=== PATIENT | female | born 1990 | race Caucasian/White ===

== ENCOUNTER 2020-04-28 09:40 | Emergency (ER) | payer OTHER, SELFPAY ==
--- NOTE | ~2020-04-28 | US_ITS ---
EXAMINATION: US OB <= 14 weeks fetus EXAM DATE: 04/28/2020 12:13 INDICATION: , vaginal bleeding. 1st trimester. TECHNIQUE: Pelvic obstetrical transabdominal sonogram was performed by a technologist. There are mu ltiple grayscale and Doppler images available for interpretation. There are no earlier studies of th is gestation for comparison. FINDINGS: Uterus measures 8.9 x 3.4 x 5.0 cm. There is intrauterine gestation sac with flattened irr egular shape. A yolk sac is identified is identified, but no pole is specifically seen. Mean sa c diameter 8 mm. Given appearance, poor prognostic indicator for this , cannot confirm or ex clude totally viability. No subchorionic hemorrhage identified. The ovaries are morphologically marcy l. IMPRESSION: Abnormal shaped gestation sac with yolk sac but no pole identified, poor prognosti c indicators for this . Reviewed, dictated and finalized at location A. IMPRESSION: Abnormal shaped gestation sac with yolk sac but no pole iden tified, poor prognostic indicators for this .
[2020-04-28 09:44] VITALS: BP 136/83; PULSE 95; RESP 18; TEMP 36.8; O2SAT 100
--- NOTE | 2020-04-28 09:56 | ED.GENADULT ---
HPI - General Adult General Chief complaint: Vaginal Bleeding Stated complaint: 7 wks , cramping and bleeding Time Seen by Provider: 04/28/20 09:44 Source: RN notes reviewed History of Present Illness HPI narrative: Patient presents emergency department from home for vaginal bleeding. Patient states she is approximately 7 weeks and she is taken 3 home test that have been positive but is not seen HIM CLERK up to this point. She states she does follow with Dr. Jones. States that this morning she had cramping in the lower abdomen as well as some vaginal bleeding with wiping. She denies any fevers or chills chest pain shortness of breath nausea vomiting diarrhea or any other symptoms. Patient is G1, P0 Related Data Home Medications Medication Instructions Recorded Confirmed No Home Medications 04/28/20 04/28/20 Allergies Allergy/AdvReac Type Severity Reaction Status Date / Time No Known Allergies Allergy Verified 04/28/20 09:47 Review of Systems Review of Systems: Narrative: Gen.: Denies fevers or chills ENT: Denies congestion Respiratory: Denies shortness of breath or cough CV: Denies chest pain or palpitations GI: Reports lower abdominal cramping, denies nausea, emesis or diarrhea see HPI Musculoskeletal: Denies back pain or muscle pain Neuro: Denies numbness, tingling, weakness or focal weakness Skin: Denies rash Except as documented, all other systems reviewed and negative [facility] Past Medical History Medical History Left wrist pain Family History Family History (Updated 12/14/18 @ 07:10 by DOCTOR UNKNOWN) Mother Family history of lupus erythematosus Social History Social History Smoking status: Never smoker Alcohol intake: current Drinks per week: 2 Substance use: never Substance use type: does not use Gender identity (if verbalized by the patient): Female Exam Narrative: Exam Narrative: APPEARANCE: No acute distress, nontoxic, resting in bed EYES: EOMI HEENT: Normocephalic, atraumatic, OMM RESPIRATORY: No respiratory distress Clear to auscultation bilaterally with no rhonchi wheezing or rales. CARDIOVASCULAR: Regular rate and rhythm without murmurs rubs or gallops. ABDOMINAL: Soft, nontender, nondistended, no rebound or guarding : Normal external exam, small amount dark red blood clots in vaginal canal, cervix is closed MUSCULOSKELETAl: Moves all extremities. NEURO: Awake and alert. Following commands, speech normal, no focal deficits SKIN:: Warm, dry. No rashes lesions or abrasions PSYCHIATRIC: Normal affect/mood, Course Course Emergency Course: Discussed with Dr. Jones presentation work-up. This time agrees with plan was discharged with follow-up as an outpatient Discussed with patient results of workup and diagnosis. Discussed need for follow-up with primary care, proper use of medication, and reasons to return to the emergency department. Patient understands and agrees to current treatment plan discussed with patient ultrasound results and concern of threatened miscarriage Vital Signs Vital signs: Vital Signs Temperature 98.3 F 04/28/20 09:44 Pulse Rate 95 04/28/20 09:44 Respiratory Rate 18 04/28/20 09:44 Blood Pressure 136/83 04/28/20 09:44 Pulse Oximetry 100 04/28/20 09:44 Temperature 98.5 F 04/28/20 11:32 Pulse Rate 98 04/28/20 11:32 Respiratory Rate 18 04/28/20 11:32 Blood Pressure 107/72 04/28/20 11:32 Pulse Oximetry 100 04/28/20 11:32 Medical Decision Making Vital Signs Vital Signs: Vital Signs Temperature 98.3 F 04/28/20 09:44 Pulse Rate 95 04/28/20 09:44 Respiratory Rate 18 04/28/20 09:44 Blood Pressure 136/83 04/28/20 09:44 Pulse Oximetry 100 04/28/20 09:44 Temperature 98.5 F 04/28/20 11:32 Pulse Rate 98 04/28/20 11:32 Respiratory Rate 18 04/28/20 11
[2020-04-28] MEDS: SODIUM CHLORIDE 0.9% IV 1,000 ML 999 ML IV CONT (10:17)
[2020-04-28 10:18] LABS: Alanine Aminotransferase 41 U/L (4-35); Albumin Level 4.8 g/dL (3.5-5.1); Alkaline Phosphatase 65 U/L (38-126); Anion Gap 12 mmol/L (8-16); Aspartate Amino Transferase 34 U/L (14-36); Bilirubin,Total 0.6 mg/dL (0.2-1.3); Blood Urea Nitrogen 11 mg/dL (7-17); Calcium 9.7 mg/dL (8.4-10.2); Carbon Dioxide 25 mmol/L (22-30); Chloride 105 mmol/L (98-107); Estimated CRCL calculation 90 ml/min; Estimated Glomerular Filt Rate > 60; Glucose 107 mg/dL (65-105); Potassium 3.9 mmol/L (3.4-5.0); Sodium 142 mmol/L (137-145)
[2020-04-28 10:22] VITALS: BP 113/66; PULSE 87; RESP 20; O2SAT 99
[2020-04-28 11:12] VITALS: BP 113/61; PULSE 92; RESP 20; O2SAT 100
[2020-04-28 11:32] VITALS: BP 107/72; PULSE 98; RESP 18; TEMP 36.9; O2SAT 100
[2020-04-28] MEDS: RHO(D) IMMUNE GLOBULIN 300 MCG SYRINGE IM (12:31)
[2020-04-28 12:33] LABS: Basophils Absolute Auto 0.1 K/mm3 (0.0-0.1); Basophils Percent Auto 0.5 % (0.2-1.2); Eosinophils Absolute Auto 0.1 K/mm3 (0-0.3); Eosinophils Percent Auto 0.6 % (0-4.4); Hematocrit 40.8 % (37.0-47.0); Immature Granulocyte Absolute 0.02 K/mm3 (0.00-0.031); Immature Granulocyte Percent A 0.2 % (0-0.5); Lymphocytes Absolute Auto 1.64 K/mm3 (0.9-3.2); Lymphocytes Percent Auto 16.2 % (18.3-44.2); Mean Corpuscular HGB Conc 34.3 g/dl (32-36); Mean Corpuscular Hemoglobin 30.8 pg (26-34); Mean Corpuscular Volume 89.7 fl (80-100); Mean Platelet Volume 10.8 fl (7.4-10.4); Monocytes Absolute Auto 0.7 K/mm3 (0.1-0.6); Monocytes Percent Auto 6.4 % (2.6-8.5); Neutrophils Absolute Auto 7.7 K/mm3 (1.3-6.7); Neutrophils Percent Auto 76.1 % (45.5-73.1); Platelet Count Result 285 k/mm3 (150-375); Red Blood Count 4.55 M/mm3 (4.2-5.4); Red Cell Distribution Width 11.7 % (11.5-14.5); White Blood Count 10.1 K/mm3 (4.5-10.0)
[2020-04-28 13:22] VITALS: BP 112/68; PULSE 78; RESP 18; O2SAT 99
== END 2020-04-28 13:25 | disposition home or self-care (01) ==
PROVIDERS: Emergency Provider Emergency Medicine; PCP Family Medicine
DX: O20.0 Threatened abortion (principal); Z3A.01 Less than 8 weeks gestation of pregnancy
CPT/HCPCS: 36415; 76801; 80053; 81025; 84702; 85025; 85461; 90384; 96365; 96372; 99284; J0131; J2790; J7030

== ENCOUNTER 2020-04-30 15:08 | Outpatient (CLI) | payer OTHER, SELFPAY | END 2020-04-30 15:09 | disposition home or self-care (01) | PROVIDERS: PCP Family Medicine; Visit Provider Obstetrics & Gynecology | DX: O20.0 Threatened abortion (principal) | CPT/HCPCS: 36415; 84702 ==

== ENCOUNTER 2020-05-21 10:00 | Outpatient (RCR) | payer OTHER, SELFPAY ==
[2020-05-07 11:01] LABS: Beta HCG Quantitative 63.32 mIU/ML
[2020-05-14 13:12] LABS: Beta HCG Quantitative 10.94 mIU/ML
[2020-05-21 10:51] LABS: Beta HCG Quantitative < 2.39 mIU/ML
== END 2020-08-05 23:59 | disposition home or self-care (01) ==
LOC: ANHLAB 10:00
PROVIDERS: PCP Family Medicine; Visit Provider Obstetrics & Gynecology
DX: O20.0 Threatened abortion (principal); Z3A.00 Weeks of gestation of pregnancy not specified
CPT/HCPCS: 36415; 84702

== ENCOUNTER 2020-10-10 11:39 | Outpatient (RCR) | payer OTHER, SELFPAY ==
[2020-10-08 13:01] LABS: Beta HCG Quantitative 279.39 mIU/ML
== END 2021-01-06 23:59 | disposition home or self-care (01) ==
LOC: ANHLAB 11:39
PROVIDERS: PCP Family Medicine; Visit Provider Obstetrics & Gynecology
DX: N91.2 Amenorrhea, unspecified (principal)
CPT/HCPCS: 36415; 84702

== ENCOUNTER 2021-03-25 10:54 | Outpatient (RCR) | payer OTHER, SELFPAY ==
[2021-03-25 12:35] LABS: Hematocrit 36.3 % (37.0-47.0)
[2021-03-25 12:52] LABS: Glucose 1 Hour PP 50gm Dose 135 mg/dL
[2021-03-25 13:28] LABS: HIV 1/2 Ab P24 Ag Result Negative (Negative)
[2021-03-27 10:01] LABS: Rapid Plasma Reagin Non-Reactive (NonReactive)
[2021-03-27] MEDS: RHO(D) IMMUNE GLOBULIN 300 MCG/2 ML SYRINGE IM (12:01)
== END 2021-06-23 23:59 | disposition home or self-care (01) ==
LOC: ANHLAB 10:54
PROVIDERS: PCP Family Medicine; Visit Provider Obstetrics & Gynecology
DX: Z29.13 Encounter for prophylactic Rho(D) immune globulin (principal); Z11.4 Encounter for screening for human immunodeficiency virus [HIV]; O36.0130 Maternal care for anti-D [Rh] antibodies, third trimester, not applicable or unspecified; Z3A.00 Weeks of gestation of pregnancy not specified
CPT/HCPCS: 36415; 82947; 85014; 85018; 85461; 86592; 86703; 90384; 96372; G0432; J2790

== ENCOUNTER 2021-06-17 16:21 | Inpatient (IN) | payer OTHER, SELFPAY ==
[2021-06-17] VITALS (10 sets, daily range): BP systolic 110–133; BP diastolic 72–86; PULSE 90–113; TEMP 36.7; BMI 35.1
[2021-06-17] MEDS: LACTATED RINGERS 1,000 ML 125 ML IV CONT (00:52)
[2021-06-17 17:34] LABS: Basophils Percent Auto 0.3 % (0.2-1.2); Eosinophils Percent Auto 0.3 % (0-4.4); Hematocrit 36.7 % (37.0-47.0); Hemoglobin 12.5 g/dL (12.0-15.0); Immature Granulocyte Absolute 0.03 K/mm3 (0.00-0.031); Immature Granulocyte Percent A 0.3 % (0-0.5); Lymphocytes Absolute Auto 1.46 K/mm3 (0.9-3.2); Lymphocytes Percent Auto 12.9 % (18.3-44.2); Mean Corpuscular HGB Conc 34.1 g/dl (32-36); Mean Corpuscular Hemoglobin 30.1 pg (26-34); Mean Corpuscular Volume 88.4 fl (80-100); Mean Platelet Volume 10.5 fl (7.4-10.4); Monocytes Absolute Auto 0.7 K/mm3 (0.1-0.6); Monocytes Percent Auto 5.9 % (2.6-8.5); Neutrophils Absolute Auto 9.1 K/mm3 (1.3-6.7); Neutrophils Percent Auto 80.3 % (45.5-73.1); Platelet Count Result 251 k/mm3 (150-375); Red Blood Count 4.15 M/mm3 (4.2-5.4); Red Cell Distribution Width 12.7 % (11.5-14.5); White Blood Count 11.3 K/mm3 (4.5-10.0)
[2021-06-17] MEDS: DINOPROSTONE 10 MG VAG INSERT VAGINAL (17:34)
[2021-06-18] VITALS (103 sets, daily range): BP systolic 81–144; BP diastolic 34–115; PULSE 63–246; RESP 16–19; TEMP 36.4–37.1; O2SAT 95–100
[2021-06-18] MEDS: LACTATED RINGERS 1,000 ML 125 ML IV CONT ×2 (07:20→12:55)
[2021-06-18] MEDS: miSOPROStol 25 MCG TABLET VAGINAL (08:00)
--- NOTE | 2021-06-18 08:02 | PM.IMHP ---
H&P: HPI History of Present Illness Date/Time: 06/18/21 08:02 Chief Complaint: induction of labor Narrative: Alia is a at 40.3 for induction of labor, elective. Had cytotec overnight. Has had several spontaneous decels, all when up to the bathroom, about 1-2 min long, with spontaneous recovery. FHT remainder of time has been category 1- reactive. Cervix remains 1/thick. Review of Systems Review of Systems: All systems reviewed & are unremarkable except as noted in HPI and below PMFSH Past Medical History Medical History (Updated 04/29/20 @ 00:00 by Aung Avila) Left wrist pain Family History Family History (Updated 05/18/21 @ 15:52 by Eber Downs RN) Mother Family history of lupus erythematosus Grandparent Family history of lupus erythematosus COVID Colon cancer Father Cardiomyopathy Social History Social History Smoking status: Never smoker Alcohol intake: current Drinks per week: 2 Substance use: never Substance use type: does not use Gender identity (if verbalized by the patient): Female Spiritual care concerns: No Meds Home Medications and Allergies Home Medications Medication Instructions Recorded Confirmed Type No Home Medications 04/28/20 06/17/21 History Allergies Allergy/AdvReac Type Severity Reaction Status Date / Time No Known Allergies Allergy Verified 04/28/20 09:47 Vital Signs Vital Signs - 24 hr 06/17/21 17:08 06/17/21 17:35 06/17/21 17:45 Temperature 98.1 F Pulse Rate 113 H 95 Blood Pressure 118/77 121/75 06/17/21 18:00 06/17/21 18:15 06/17/21 18:30 Temperature Pulse Rate 104 H 96 104 H Blood Pressure 110/78 111/72 112/74 06/17/21 18:46 06/17/21 19:00 06/17/21 19:15 Temperature Pulse Rate 93 90 96 Blood Pressure 133/75 121/76 124/72 06/17/21 19:30 06/18/21 00:15 06/18/21 00:17 Temperature 98.7 F Pulse Rate 96 89 Blood Pressure 121/86 136/73 06/18/21 05:32 06/18/21 06:00 06/18/21 06:31 Temperature 98.4 F Pulse Rate 96 83 Blood Pressure 142/79 H 108/62 06/18/21 07:00 06/18/21 07:31 06/18/21 08:00 Temperature Pulse Rate 86 100 104 H Blood Pressure 127/73 139/59 L 137/91 H Exam Const: General: no acute distress Resp: Effort & Inspection: normal respiratory effort Auscultation: clear to auscultation bilaterally Cardio: Rate: regular rate Rhythm: regular rhythm GI: GI Palp: Yes Soft to palpation Extrem: General: normal to inspection H&P: Results Labs Labs: Short CBC 06/17/21 Range/Units 17:04 WBC 11.3 H (4.5-10.0) K/mm3 Hgb 12.5 (12.0-15.0) g/dL Hct 36.7 L (37.0-47.0) % Plt Count 251 (150-375) k/mm3 Assessment and Plan Additional Plan Here for induction of labor- s/p cervidil, will do cytotec x1 and try AROM after that. GBSneg FHT category 2 overnight, majority category 1 with good variability and accels. Discussed decels early in induction process do increase risk of intolerance of labor and section. Discussed POC with RN, pt, and support person.
[2021-06-18 11:37] LABS: Rapid Plasma Reagin Non-Reactive (NonReactive)
--- NOTE | 2021-06-18 12:53 | PM.OBPNLAB ---
Pain Control Date/time seen: 06/18/21 12:53 Pain control: tolerating well Pelvic Exam Dilation (cm): 3 Effacement (%): 70 station: -3 Comments: AROM clear, scant Contractions Contraction pattern: Regular Status status: Category ll Comments: mod yary with accels and two variables in last hour Assessment and Plan Assessment: induction ongoing
--- NOTE | 2021-06-18 13:47 | WPDANESEPPF ---
Anes - Initial Pre Proc Eval Date/Time: 06/18/21 13:47 Surgeon: Mechelle Hackett MD Pre Op Diagnosis: Induction of Labor Patient Data Age: 30 Gender: F Height: 1.6 m Weight: 90 kg Last Vital Signs Temp 36.9 C 06/18/21 11:00 Pulse 95 06/18/21 13:45 BP 133/82 06/18/21 13:45 Pulse Ox 100 06/18/21 13:43 Allergies Allergy/AdvReac Type Severity Reaction Status Date / Time No Known Allergies Allergy Verified 04/28/20 09:47 Home Medications Medication Instructions Recorded Confirmed Type No Home Medications 04/28/20 06/17/21 History Laboratory Tests 06/17/21 06/17/21 06/17/21 17:04 17:04 17:04 WBC 11.3 K/mm3 H K/mm3 (4.5-10.0) RBC 4.15 M/mm3 L M/mm3 (4.2-5.4) Hgb 12.5 g/dL g/dL (12.0-15.0) Hct 36.7 % L % (37.0-47.0) MCV 88.4 fl fl (80-100) MCH 30.1 pg pg (26-34) MCHC 34.1 g/dl g/dl (32-36) RDW 12.7 % % (11.5-14.5) Plt Count 251 k/mm3 k/mm3 (150-375) MPV 10.5 fl H fl (7.4-10.4) Immature Gran % (Auto) 0.3 % % (0-0.5) Neut % (Auto) 80.3 % H % (45.5-73.1) Lymph % (Auto) 12.9 % L % (18.3-44.2) [place] % (Auto) 5.9 % % (2.6-8.5) Eos % (Auto) 0.3 % % (0-4.4) Baso % (Auto) 0.3 % % (0.2-1.2) Lymph # (Auto) 1.46 K/mm3 K/mm3 (0.9-3.2) [place] # (Auto) 0.7 K/mm3 H K/mm3 (0.1-0.6) Eos # (Auto) 0.0 K/mm3 K/mm3 (0-0.3) Baso # (Auto) 0.0 K/mm3 K/mm3 (0.0-0.1) Abs Immat Gran (auto) 0.03 K/mm3 K/mm3 (0.00-0.031) Absolute Neuts (auto) 9.1 K/mm3 H K/mm3 (1.3-6.7) Absolute Nucleated RBC 0.0 K/mm3 K/mm3 (0.0-0.012) Nucleated RBC % 0.0 % % (0.0-0.2) RPR Non-reactive (NonReactive) Blood Type B Negative Antibody Screen Negative Patient hx anesthesia problems: none Family hx anesthesia problems: none Results Review: All pre-operative results and documents have been reviewed as part of the pre-operative evaluation. [facility] Past Medical History Medical History Anxiety Hx of migraines Left wrist pain PFO (patent foramen ovale) Seizure disorder Family History Family History Mother Family history of lupus erythematosus Grandparent Family history of lupus erythematosus COVID Colon cancer Father Cardiomyopathy Social History Social History Smoking status: Never smoker Alcohol intake: current Drinks per week: 2 Substance use: never Substance use type: does not use Gender identity (if verbalized by the patient): Female Spiritual care concerns: No Anes - Eval Final PreProcedure Day of Procedure 06/18/21 13:47 Patient weight: obese ASA classification: III Emergent: no Anesthetic plan: proceed Anesthesia type and monitoring: regional epidural and standard monitoring Results Review: All pre-operative results and documents have been reviewed as part of the pre-operative evaluation. Informed Consent: The patient's anesthetic plan and its attendant risks and benefits were discussed with the patient/family/POA. Questions were solicited and answers provided to the satisfaction of the patient/family/POA.
--- NOTE | 2021-06-18 14:18 | PM.OBPNLAB ---
Pain Control Date/time seen: 06/18/21 14:18 Pelvic Exam Dilation (cm): 3 Effacement (%): 70 station: -3 Contractions Contraction pattern: Regular Status status: Category ll Assessment and Plan Comments: Repetitive deep variables following epidural, but BPs ok. FHT now reasonable, but as we are remote from delivery with multiple episodes of decelerations since last night, and remote from delivery, pt and myself have decided to proceed with section. Discussed RBA, questions answered. Will proceed. Not emergent but timely.
[2021-06-18] MEDS: ceFAZolin 2 GM/D5W 50 ML 2 GM/50 ML BAG IVPB ×2 (14:30→21:00)
--- NOTE | 2021-06-18 15:12 | P.OP_ITS ---
Procedure Note - Detailed Date of Procedure 06/18/21 Pre-op Diagnosis intolerance of labor Post-op Diagnosis same Procedure Performed primary low transverse section Surgeon Mechelle Hackett MD Medical Policy Specialist see delivery record Anesthesia epidural Indications intolerance of labor Description of Procedure Upon arrival to the OR, heart tones were appreciated in the 80s. They improved to the 120s temporarily and then persisted in the 70s and 80s and so urgent section was indicated. She had received epidural anesthesia, ancef, and azithromycin, and erwin was in place. A prep was done with a Betadine splash. After briefly testing for adequate regional anesthesia, a Pfannensteil incision was made through skin and subcutaneous tissue. The fascia was incised in the midline and this was extended laterally with molina scissors. the rectus muscles were from the fascia both superiorly and inferiorly. The peritoneum was entered bluntly and this opening was extended bluntly and with metzenbaum sc issors. A bladder blade was placed. A bladder flap was made and the bladder blade replaced. The low transverse uterine incision was made with a scalpel and extended bluntly. The amniotic sac was ruptured and clear fluid was noted. The head was elevated to the incision. The head delivered easily. The remainder of the infant was delivered easily. After delayed cord clamping, the cord was cut and the baby handed to the nurse. The uterus was exteriorized and the placenta was extracted manually. The uterus was wiped clean to ensure no remaining membranes. The uterus was closed with one running, nonlocking suture of 3-0 vicryl. Hemostasis was noted. the uterus was returned to the pelvis and the abdomen was irrigated. The fascia was closed with running suture of 0-vicryl. The subcutaneous tissue was irrigated and made hemostatic with bovie cautery. The skin was closed with absorbable yoni and steri strips were placed. The patient tolerated the procedure well and mother and baby were both in stable condition. Estimated Blood Loss 460 Drains No Packing No Pathology yes Complications No immediate complications Condition stable Disposition floor
--- NOTE | 2021-06-18 15:18 | P.PCNOB_ITS ---
OB - Delivery Note Procedure Delivery date: 06/18/21 Procedure: Primary low transverse section events: Labor Induction Intrapartal events: Intolerance Induction method: AROM, per pitocin protocol and per cervidil protocol Delivery monitor: external FHT and external uterine Route of delivery: Specimen: Yes (placenta) Quantitative Blood Loss (ml): 460 Anesthesia type: Epidural Disposition: floor Complications: none Narrative: Upon arrival to the OR, heart tones were appreciated in the 80s. They improved to the 120s temporarily and then persisted in the 70s and 80s and so urgent section was indicated. She had received epidural anesthesia, ancef, and azithromycin, and erwin was in place. A prep was done with a Betadine splash. After briefly testing for adequate regional anesthesia, a Pfannensteil incision was made through skin and subcutaneous tissue. The fascia was incised in the midline and this was extended laterally with molina scissors. the rectus muscles were from the fascia both superiorly and inferiorly. The peritoneum was entered bluntly and this opening was extended bluntly and with metzenbaum scissors. A bladder blade was placed. A bladder flap was made and the bladder blade replaced. The low transverse uterine incision was made with a scalpel and extended bluntly. The amniotic sac was ruptured and clear fluid was noted. The head was elevated to the incision. The head delivered easily. The remainder of the was delivered easily. After delayed cord clamping, the cord was cut and the baby handed to the nurse. The uterus was exteriorized and the placenta was extracted manually. The uterus was wiped clean to ensure no remaining membranes. The uterus was closed with one running, nonlocking suture of 3-0 vicryl. Hemostasis was noted. the uterus was returned to the pelvis and the abdomen was irrigated. The fascia was closed with running suture of 0-vicryl. The subcutaneous tissue was irrigated and made hemostatic with bovie cautery. The skin was closed with absorbable yoni and steri strips were placed. The patient tolerated the procedure well and mother and baby were both in stable condition. All counts were correct. She was taken to the recovery room in good condition. [place] Baby Date of : 06/18/21 Time of : 14:39 Weeks of gestation at delivery: 40 gender: Female Weight (pounds): 6 Weight (ounces): 11 presentation: vertex Placenta delivery description: Manual Removal cord vessel description: 3 Vessels score one minute: 6 score five minutes: 7
[2021-06-18] MEDS: OXYTOCIN 30 UNITS/NS 500 ML 30 UNITS/500 ML BAG 125 UNITS IV CONT (15:53)
[2021-06-18] MEDS: DEXTROSE 5%/0.45% SOD CHL 1,000 ML 125 ML IV CONT (21:00)
[2021-06-18] MEDS: DOCUSATE SODIUM 100 MG CAPSULE PO (21:07)
[2021-06-19] MEDS: ceFAZolin 2 GM/D5W 50 ML 2 GM/50 ML BAG IVPB (04:14)
[2021-06-19 04:38] VITALS: BP 86/65; PULSE 84; RESP 18; TEMP 36.3; O2SAT 100
--- NOTE | 2021-06-19 05:31 | P.PNOB_ITS ---
OB - PN: Subj Subjective Date/time seen: 06/19/21 05:31 Patient comments: no complaints baby status: NICU feeding status: pumping and storing Narrative: POD 1 from primary CS. Doing well. Normal lochia. Eating, ambulating, erwin out. Baby in level 2 with pneumothorax. OB - PN: Obj Data Labs CBC & Chem 7: 06/17/21 17:04 Labs: Laboratory Results - last 24 hr 06/17/21 17:04 RPR Non-reactive OB - PN A/P Assessment and Plan (1) delivery delivered: Code(s): O82 - Encounter for delivery without indication Status: Acute Plan day: 1 Plan: routine care Time Spent With Patient Time: Total time spent is greater than 50% in coordination of care (as documented) at patient's floor/unit and/or counseling patient: Exam 2 Narrative: NAD abdomen soft, appropriately tender, incision bandaged Extremities nontender with 1+ edema
[2021-06-19 05:39] LABS: Basophils Percent Auto 0.2 % (0.2-1.2); Hematocrit 31.5 % (37.0-47.0); Hemoglobin 10.6 g/dL (12.0-15.0); Immature Granulocyte Absolute 0.09 K/mm3 (0.00-0.031); Immature Granulocyte Percent A 0.6 % (0-0.5); Lymphocytes Absolute Auto 1.28 K/mm3 (0.9-3.2); Lymphocytes Percent Auto 8.1 % (18.3-44.2); Mean Corpuscular HGB Conc 33.7 g/dl (32-36); Mean Corpuscular Hemoglobin 31.2 pg (26-34); Mean Corpuscular Volume 92.6 fl (80-100); Mean Platelet Volume 10.9 fl (7.4-10.4); Monocytes Percent Auto 6.2 % (2.6-8.5); Neutrophils Absolute Auto 13.4 K/mm3 (1.3-6.7); Neutrophils Percent Auto 84.9 % (45.5-73.1); Platelet Count Result 183 k/mm3 (150-375); Red Cell Distribution Width 12.9 % (11.5-14.5); White Blood Count 15.7 K/mm3 (4.5-10.0)
[2021-06-19] MEDS: IBUPROFEN 600 MG TABLET PO ×3 (07:35→21:40)
--- NOTE | 2021-06-19 08:06 | WPDANLDPN2 ---
Anes-Prog Note L&D Date/Time: 06/19/21 08:06 Comfortable throughout: section Neuraxial method: epidural Epidural/Spinal procedure site: clean & non-tender Neuro status: Neuro function grossly intact. Cardiovascular status: normal Respiratory status: normal Airway patency: baseline Mental status: baseline Post-Op hydration status: normal Vital Signs: Last Vital Signs Temp 36.3 C L 06/19/21 04:38 Pulse 84 06/19/21 04:38 Resp 18 06/19/21 04:38 BP 86/65 L 06/19/21 04:38 Pulse Ox 100 06/19/21 04:38 Pain score (VAS): 4 I/O: Intake & Output 06/18/21 06/19/21 06/19/21 23:59 07:59 15:59 Intake Total 50 500 Output Total 200 2450 Balance -150 -1950 Post-procedural complaints: none Patient feedback: Patient satisfied with anesthetic care.
--- NOTE | 2021-06-19 08:06 | WPDANLDNPN2 ---
Anes-Prog Note L&D-Neuraxial Date/Time: 06/19/21 08:06 Neuraxial medications: epidural PF morphine Opiod-related complaints: none Patient feedback: Patient satisfied with post-operative pain management.
[2021-06-19 08:30] VITALS: BP 110/62; PULSE 96; RESP 18; TEMP 36.6; O2SAT 100
--- NOTE | 2021-06-19 10:40 | PC.NURSE ---
Mother called out for assist with feeding, reporting this is 's first feeding out of Level II. Mother has been going to the nursery for feedings. Reviewed feeding cues, frequencies, duration of feedings, feeding elimination flow sheet, and signs of adequate intake. Demonstrated stimulation techniques to wake infant for feeding. Assisted with infant to breast. Reviewed positioning/alignment in football cradle, holding breast in ?C? hold and guided asymmetrical latch on. Reviewed rational for each. able to latch correctly within a few attempts. nursed eagerly with steady draws and occasional swallowing noted, some pausing noted. Reviewed signs of a correct latch, effective nursing and suck swallow ratio. Suggested mother stimulate while feeding to increase stimulation for milk supply, for increased intake and to assist with maintaining deep latch. Infant would slip to shallow latch causing tenderness. Demonstrated how to adjust latch more deeply while feeding as needed. Mother reports she can feel the difference in latch with no tenderness. Nipple care reviewed of lanolin after feedings, warm compresses as needed. Instructed mother to call out for RN assistance if she is unable to latch infant for feeding or she has discomfort with nursing. Instructed feeding should be initiated three hours from start of last feeding or if feeding cues are noted before. Mother voiced understanding of information shared.
[2021-06-19 11:37] VITALS: BP 93/48; PULSE 86; RESP 18; TEMP 36.7; O2SAT 99
--- NOTE | 2021-06-19 12:05 | PC.NURSE ---
Addendum entered by Jackie Garcia RN 06/19/21 15:22: note on wrong pt. Original Note: Mother called out for assist with feeding, reporting she is unable to wake infant for feeding. Demonstrated stimulation techniques to wake for feeding. Several minutes to wake infant and feeding cues noted. Assisted with to breast. Reviewed positioning/alignment in cross cradle, holding breast in ?U? hold and guided asymmetrical latch on. Reviewed rational for each. able to latch correctly within a few attempts. nursed eagerly with steady draws and occasional swallowing noted for short bursts followed with long pausing. Reviewed signs of a correct latch, effective nursing and suck swallow ratio. Suggested mother stimulate while feeding to increase stimulation for milk supply, for increased intake and to assist with maintaining deep latch. Infant would respond with repeated bursts of effective suckling followed with long pausing. was able to maintain latch without discomfort to mother.
[2021-06-19] MEDS: DOCUSATE SODIUM 100 MG CAPSULE PO (15:26)
[2021-06-19] MEDS: ACETAMINOPHEN 325 MG TABLET 650 MG PO (16:57)
[2021-06-19 20:48] VITALS: BP 101/64; PULSE 81; RESP 16; TEMP 36.6
[2021-06-19] MEDS: RHO(D) IMMUNE GLOBULIN 300 MCG/2 ML SYRINGE IM (21:40)
[2021-06-20] MEDS: ACETAMINOPHEN 325 MG TABLET 650 MG PO ×2 (00:12→08:41)
[2021-06-20] MEDS: IBUPROFEN 600 MG TABLET PO (05:05)
[2021-06-20 08:00] VITALS: BP 109/70; PULSE 83; RESP 18; TEMP 36.4
--- NOTE | 2021-06-20 08:22 | PM.OBPNVD ---
OB - PN: Subj Subjective Date/time seen: 06/20/21 08:22 Patient comments: no complaints baby status: doing well OB - PN: Obj Data Labs CBC & Chem 7: 06/19/21 04:19 Labs: Laboratory Results - last 24 hr 06/19/21 04:19 Blood Type B Negative Antibody Screen TNP Screen Negative Baby's Blood Type B pos Baby's AISHA Negative Doses of RhIg Required 1 OB - PN A/P Plan day: 2 Plan: routine care and discharge home Time Spent With Patient Time: Total time spent is greater than 50% in coordination of care (as documented) at patient's floor/unit and/or counseling patient: Review of Systems Review of Systems: All systems reviewed & are unremarkable except as noted in HPI and below Exam Narrative: incision CDI Const: General: cooperative, healthy appearing, comfortable and no acute distress
--- NOTE | 2021-06-20 08:26 | PM.OBDSVD ---
DS: Admitting Diagnosis Discharge Date 06/20/21 Admitting Diagnosis primary OB - DS: Summary OB Procedures : None OB Procedures Intrapartum: OB Procedures: : None Peripartum Data Procedures: Procedures Operation Date: 06/18/21 14:30 Actual Procedure Side Surgeon p Section Mechelle Hackett MD Time Spent with Patient Time attestation: Total time spent providing and/or coordinating discharge services: DS: Data Data Completed and Pending Pending studies at discharge: Pending at discharge 06/18/21 16:03 Surgical [PTH] Routine Labs on day of discharge: Labs from last 24 hours 06/19/21 04:19 Blood Type B Negative Antibody Screen TNP Screen Negative Baby's Blood Type B pos Baby's AISHA Negative Doses of RhIg Required 1 Discharge Plan Discharge Attending physician on discharge: Sandra Jones Discharging Clinician: Elizabeth Fowler Patient Disposition: Home, Self-Care Activity: pelvic rest Diet: regular Patient Instructions: Antibiotic Form Stand Alone Forms: General Discharge Information Follow-up/Referrals: Mechelle Hackett MD [Physician] - 1 Week Discharge Medications: New hydrocodone-acetaminophen 5-325 mg Tablet 1 tablet PO Q3H PRN (Reason: Moderate Pain (4-6)) Qty: 20 RF: 0 No Action No Home Medications RF: 0 Date of admission: 06/17/21 16:21 Primary Care Provider: Theo Ontiveros Admitting Provider: Mechelle Hackett Attending physician on admission: Mechelle Hackett Condition: Stable
--- NOTE | 2021-06-20 08:30 | PC.NURSE ---
Patient viewed the discharge video Mother & Baby Care, The First Two Weeks . Patient was given the opportunity and encouraged to ask questions. Patient verbalized understanding of information shared and has been given the mother/baby guide for home reference.
[2021-06-20] MEDS: SIMETHICONE 80 MG TAB.CHEW PO (08:41)
[2021-06-20] MEDS: DOCUSATE SODIUM 100 MG CAPSULE PO (08:41)
[2021-06-20] MEDS: MULTIVIT/MIN/PREN/FOL AC/IRON TABLET 1 TAB PO (08:41)
--- NOTE | 2021-06-20 09:34 | PC.NURSE ---
Self care and infant discharge instructions given to pt. including follow up visit date and time. Pt. verbalized understanding. No questions or concerns verbalized. Very pleasant and cooperative.
[2021-06-21 14:27] VITALS: BP 122/79; PULSE 91; RESP 20; TEMP 37; O2SAT 100
== END 2021-06-20 12:20 | disposition home or self-care (01) | DRG 788 ==
LOC: ANHLDR 16:32 → ANHOB2 06-18 18:36
PROVIDERS: Admitting Provider Obstetrics & Gynecology; PCP Family Medicine; Visit Provider Obstetrics & Gynecology
PROC: 10D00Z1 Extraction of Products of Conception, Low, Open Approach (ICD-10-PCS; CPT 59514; principal; 2021-06-18 14:30)
DX: O76 Abnormality in fetal heart rate and rhythm complicating labor and delivery (principal); O69.82X0 Labor and delivery complicated by other cord entanglement, without compression, not applicable or unspecified; O36.8330 Maternal care for abnormalities of the fetal heart rate or rhythm, third trimester, not applicable or unspecified; Z3A.40 40 weeks gestation of pregnancy; Z37.0 Single live birth
CPT/HCPCS: 36415; 85025; 85461; 86592; 86850; 86900; 86901; 88307; 90384; A9270; J0456; J0690; J1885; J2210; J2274; J2590; J2704; J2790; J2795; J7120